=== PATIENT | male | born 1985 | race Caucasian/White ===

== ENCOUNTER 2017-07-04 23:38 | Inpatient (IN) | payer OTHER ==
[~2017-07-04] VITALS: Ht 180.3 cm; Wt 83.6 kg
[~2017-07-04 23:38] MED LIST: ATARAX,VISTARIL25 MG PO; ATARAX,VISTARIL50 MG PO; BUSPAR15 MG PO; CLARITIN10 M3 PO; CLONAZEPAM1 MG PO; EFFEXOR XR150 MG PO; FIORICET,ESG1 TABLET PO; HYDROXYZINE HCL50 MG PO; KLONOPIN1 MG PO; MOTRIN800 MG PO
[2017-07-05 00:07] LABS: HEMATOCRIT 42.3 % (38.0-50.0); MCH 31.1 PG (29.0-34.0); MCV 91.4 FL (86-99); MEAN PLAT.VOLUME 10.1 uM^3 (9.0-12.4); PLATELET COUNT 183 K/uL (156-360); RBC DIS.WIDTH-CV 13.5 % (11.8-14.6); RBC DIS.WIDTH-SD 45.8 % (39-53); RED BLOOD COUNT 4.63 M/uL (4.00-5.50); WHITE BLOOD COUNT 8.4 K/uL (4.1-10.2)
[2017-07-05 00:19] LABS: CHLORIDE 101 mEq/L (99-109); POTASSIUM 3.7 mEq/L (3.7-5.4); SODIUM 140 mEq/L (136-147)
[2017-07-05 00:21] LABS: GLUCOSE 104 mg/dL (70-99)
[2017-07-05 00:22] LABS: ANION GAP 11 MEQ/L (2-14)
[2017-07-05 00:24] LABS: GFR ESTIMATE (CALCULATED) > 59 mL/min/ (58.99-99999); SERUM ETHYL ALCOHOL < 10 mg/dL
[2017-07-05 00:25] LABS: UREA NITROGEN (BUN) 11 mg/dL (9-23)
[2017-07-05 04:44] LABS: PHENCYCLIDINE NEGATIVE (25 ng/mL); THC CANNABINOIDS PRESUMPTIVE POSITIVE (50 ng/mL)
[2017-07-05 04:45] LABS: ADD MEDTOX COMMENT Y; AMPHETAMINE NEGATIVE (500 ng/mL); BARBITURATES NEGATIVE (200 ng/mL); BENZODIAZEPINES NEGATIVE (150 ng/mL); COCAINE NEGATIVE (150 ng/mL); INTERNAL CONTROLS VALID? YES; METHADONE NEGATIVE (200 ng/mL); METHAMPHETAMINE NEGATIVE (500 ng/mL); OPIATES (MORPHINE) NEGATIVE (100 ng/mL); OXYCODONE NEGATIVE (100 ng/mL); PROPOXYPHENE NEGATIVE (300 ng/mL); TRICYCLIC ANTIDEPRESSANTS NEGATIVE (300 ng/mL)
[2017-07-05] MEDS ORDERED: NP THYROID90 MG PO (05:16)
[2017-07-05 05:39] VITALS: BP 119/67
[2017-07-05 07:35] VITALS: BP 102/58
[2017-07-05 15:34] VITALS: BP 103/55
[2017-07-06 07:44] VITALS: BP 131/79
[2017-07-06 15:56] VITALS: BP 104/62
[2017-07-07 07:07] VITALS: BP 123/73
[2017-07-07 15:36] VITALS: BP 104/50
[2017-07-08 07:55] VITALS: BP 103/53
[2017-07-08] MEDS ORDERED: GABAPENTIN100 MG PO (09:16)
[2017-07-08] MEDS ORDERED: BUPROPION HCL100 M1 PO (09:16)
[2017-07-08] MEDS ORDERED: NP THYROID90 MG PO (09:16)
== END 2017-07-08 09:58 | disposition home or self-care (01) | DRG 881 ==
LOC: EME 23:38 → 1WEST 07-05 04:13 → EDOF 07-05 04:13 → 1WEST 07-05 04:13 → ENRESERV 07-05 04:43 → 1WEST 07-05 05:29
DX: F32.9 Major depressive disorder, single episode, unspecified (principal); R45.851 Suicidal ideations; F41.9 Anxiety disorder, unspecified; F11.10 Opioid abuse, uncomplicated; F12.90 Cannabis use, unspecified, uncomplicated; B19.20 Unspecified viral hepatitis C without hepatic coma; E03.9 Hypothyroidism, unspecified; F17.200 Nicotine dependence, unspecified, uncomplicated
CPT/HCPCS: 80048; 84439; 84443; 84999; 85027; 90839; 99281; 99285; G0480; Q0177